=== PATIENT | male | born 1980 | race Caucasian/White ===

== ENCOUNTER 2025-05-23 18:04 | Inpatient (IN) | payer OTHER ==
[2025-05-23] MEDS ORDERED: Sodium Chloride 0.9% 10 ML Syringe FLUSH PRN (18:54)
[2025-05-23 19:09] LABS: BASOPHILS ABSOLUTE AUTO 0.1 K/mm3 (0.0-0.2); BASOPHILS PERCENT AUTO 0.3 % (0.0-1.0); EOSINOPHILS ABSOLUTE AUTO 0.0 K/mm3 (0.0-0.4); EOSINOPHILS PERCENT AUTO 0.1 % (0.0-6.0); IMMATURE GRAN ABSOLUTE AUTO 0.07 K/mm3 (0.00-0.05); IMMATURE GRAN PERCENT AUTO 0.5 % (0.0-0.4); LYMPHOCYTES ABSOLUTE AUTO 0.5 K/mm3 (1.0-4.8); LYMPHOCYTES PERCENT AUTO 3.4 % (24.0-44.0); MEAN PLATELET VOLUME 10.4 fl (9.4-12.4); MONOCYTES ABSOLUTE AUTO 0.8 K/mm3 (0.0-0.8); MONOCYTES PERCENT AUTO 5.0 % (0.0-8.0); NEUTROPHILS ABSOLUTE AUTO 13.9 K/mm3 (1.8-7.7); NEUTROPHILS PERCENT AUTO 90.7 % (41.0-71.0); NRBC ABSOLUTE 0.00 (0.00-0.02); NRBC PERCENT 0.0 % (0.0-0.2); PLATELET COUNT,PLT 209 K/mm3 (150-400); RED BLOOD CELL COUNT 7.02 M/mm3 (4.52-5.90); WHITE BLOOD CELL COUNT,WBC 15.35 K/mm3 (3.9-11.3)
[2025-05-23 19:21] LABS: INR 1.22
[2025-05-23 19:23] LABS: LACTIC ACID 1.3 mmol/L (0.4-2.0)
[2025-05-23 19:31] LABS: A/G RATIO 1.2 (1-2); ALANINE AMINOTRANSFERASE,ALT 495.0 U/L (16-63); ASPARTATE AMNIOTRANSFERASE,AST 188.0 U/L (15-37); BILIRUBIN TOTAL 14.0 mg/dL (0.2-1.0); BLOOD UREA NITROGEN,BUN 20.0 mg/dL (7-18); CARBON DIOXIDE,CO2 32.0 mEq/L (21-32); CHLORIDE,CL 102.0 mEq/L (98-107); CREATINE KINASE,CK 397.0 U/L (39-308); EST CRCL DRUG DOSING (CG) 56.41 mL/min; ESTIMATED GFR 54.0 mL/min (>60); GLUCOSE RANDOM 123.0 mg/dL (70-99); SODIUM,NA 142.0 mEq/L (136-145); TROPONIN I HIGH SENSITIVITY 36.0 pg/mL (<=76); TSH 2.762 uIU/mL (0.358-3.74)
[2025-05-23 19:32] LABS: ETHANOL BLOOD MEDICAL 0.0 gm% (0.00); POTASSIUM,K 4.0 mEq/L (3.5-5.1)
[2025-05-23 19:33] LABS: CREATININE 1.6 mg/dL (0.7-1.3); PROTEIN TOTAL,TP 7.2 g/dl (6.4-8.2)
[2025-05-23 19:38] LABS: BASE EXCESS ARTERIAL 1.3 (-2-2.0); BICARBONATE,ARTERIAL 23.8 meq/L (22.0-26.0); O2 SATURATION ARTERIAL 96.6 % (96.0-97.0); PCO2 ARTERIAL 32.0 mmHg (35.0-45.0); PO2 ARTERIAL 81.0 mmHg (80.0-100.0)
[2025-05-23] MEDS: Ondansetron 4 MG/2 ML SDV IVPUSH ONE (19:42)
[2025-05-23] MEDS ORDERED: Acetylcysteine 20% 200 MG/ML 30 ML SDV IV ONE ×2 (21:03→23:45)
[2025-05-23 21:07] LABS: APPEARANCE,URINE CLEAR (Clear); GLUCOSE,URINE TRACE (Negative); OCCULT BLOOD,URINE NEGATIVE (Negative)
[2025-05-23 21:15] LABS: EPITHELIAL CELLS,URINE 0-5 /hpf (0-5)
[2025-05-23 21:17] LABS: BUPRENORPHINE SCREEN,URINE NEGATIVE (CUTOFF=10); METHADONE SCREEN, URINE NEGATIVE (CUT0FF=200); METHAMPHETAMINES SCREEN, URINE NEGATIVE (CUTOFF=500); OXYCODONE SCREEN,URINE NEGATIVE (CUT0FF=100); THC SCREEN,URINE 20 NG/ML NEGATIVE (CUTOFF=50)
[2025-05-23 21:18] LABS: AMPHETAMINES SCREEN, URINE NEGATIVE (CUTOFF=500)
[2025-05-23 21:31] LABS: HEPATITIS C AB NON-REACTIVE (Non-React)
[2025-05-24] MEDS ORDERED: Ondansetron 4 MG/2 ML SDV IVPUSH PRN (00:28)
[2025-05-24] MEDS ORDERED: Acetylcysteine 20% 200 MG/ML 30 ML SDV IV ONE (01:00)
[2025-05-24 04:39] LABS: BASOPHILS ABSOLUTE AUTO 0.0 K/mm3 (0.0-0.2); BASOPHILS PERCENT AUTO 0.2 % (0.0-1.0); EOSINOPHILS ABSOLUTE AUTO 0.1 K/mm3 (0.0-0.4); EOSINOPHILS PERCENT AUTO 0.8 % (0.0-6.0); IMMATURE GRAN ABSOLUTE AUTO 0.06 K/mm3 (0.00-0.05); IMMATURE GRAN PERCENT AUTO 0.7 % (0.0-0.4); LYMPHOCYTES ABSOLUTE AUTO 0.5 K/mm3 (1.0-4.8); LYMPHOCYTES PERCENT AUTO 6.0 % (24.0-44.0); MEAN PLATELET VOLUME 11.2 fl (9.4-12.4); MONOCYTES ABSOLUTE AUTO 0.6 K/mm3 (0.0-0.8); MONOCYTES PERCENT AUTO 6.1 % (0.0-8.0); NEUTROPHILS ABSOLUTE AUTO 7.8 K/mm3 (1.8-7.7); NEUTROPHILS PERCENT AUTO 86.2 % (41.0-71.0); NRBC ABSOLUTE 0.00 (0.00-0.02); NRBC PERCENT 0.0 % (0.0-0.2); PLATELET COUNT,PLT 164 K/mm3 (150-400); RED BLOOD CELL COUNT 6.08 M/mm3 (4.52-5.90); WHITE BLOOD CELL COUNT,WBC 9.07 K/mm3 (3.9-11.3)
[2025-05-24 05:19] LABS: A/G RATIO 0.9 (1-2); ALANINE AMINOTRANSFERASE,ALT 367.0 U/L (16-63); ASPARTATE AMNIOTRANSFERASE,AST 110.0 U/L (15-37); BILIRUBIN TOTAL 5.0 mg/dL (0.2-1.0); BLOOD UREA NITROGEN,BUN 17.0 mg/dL (7-18); CARBON DIOXIDE,CO2 25.0 mEq/L (21-32); CHLORIDE,CL 105.0 mEq/L (98-107); EST CRCL DRUG DOSING (CG) 64.46 mL/min; ESTIMATED GFR 63.0 mL/min (>60); GLUCOSE RANDOM 149.0 mg/dL (70-99); SODIUM,NA 139.0 mEq/L (136-145)
[2025-05-24 05:24] LABS: CREATININE 1.4 mg/dL (0.7-1.3); POTASSIUM,K 3.8 mEq/L (3.5-5.1); PROTEIN TOTAL,TP 5.4 g/dl (6.4-8.2)
[2025-05-24 05:52] LABS: BILIRUBIN DIRECT 3.7 mg/dl (0.0-0.2)
[2025-05-24 18:30] LABS: A/G RATIO 0.8 (1-2); ALANINE AMINOTRANSFERASE,ALT 382.0 U/L (16-63); ASPARTATE AMNIOTRANSFERASE,AST 97.0 U/L (15-37); BILIRUBIN TOTAL 1.9 mg/dL (0.2-1.0); BLOOD UREA NITROGEN,BUN 14.0 mg/dL (7-18); CARBON DIOXIDE,CO2 27.0 mEq/L (21-32); CHLORIDE,CL 108.0 mEq/L (98-107); CREATININE 1.5 mg/dL (0.7-1.3); EST CRCL DRUG DOSING (CG) 60.17 mL/min; ESTIMATED GFR 58.0 mL/min (>60); GLUCOSE RANDOM 122.0 mg/dL (70-99); POTASSIUM,K 4.0 mEq/L (3.5-5.1); PROTEIN TOTAL,TP 5.7 g/dl (6.4-8.2); SODIUM,NA 143.0 mEq/L (136-145)
[2025-05-24 18:35] LABS: INR 1.16
[2025-05-25 04:30] LABS: BASOPHILS ABSOLUTE AUTO 0.0 K/mm3 (0.0-0.2); BASOPHILS PERCENT AUTO 0.6 % (0.0-1.0); EOSINOPHILS ABSOLUTE AUTO 0.1 K/mm3 (0.0-0.4); EOSINOPHILS PERCENT AUTO 1.7 % (0.0-6.0); IMMATURE GRAN ABSOLUTE AUTO 0.06 K/mm3 (0.00-0.05); IMMATURE GRAN PERCENT AUTO 0.8 % (0.0-0.4); LYMPHOCYTES ABSOLUTE AUTO 0.7 K/mm3 (1.0-4.8); LYMPHOCYTES PERCENT AUTO 9.5 % (24.0-44.0); MEAN PLATELET VOLUME 11.1 fl (9.4-12.4); MONOCYTES ABSOLUTE AUTO 0.8 K/mm3 (0.0-0.8); MONOCYTES PERCENT AUTO 10.6 % (0.0-8.0); NEUTROPHILS ABSOLUTE AUTO 5.5 K/mm3 (1.8-7.7); NEUTROPHILS PERCENT AUTO 76.8 % (41.0-71.0); NRBC ABSOLUTE 0.00 (0.00-0.02); NRBC PERCENT 0.0 % (0.0-0.2); PLATELET COUNT,PLT 154 K/mm3 (150-400); RED BLOOD CELL COUNT 5.94 M/mm3 (4.52-5.90); WHITE BLOOD CELL COUNT,WBC 7.18 K/mm3 (3.9-11.3)
[2025-05-25 04:48] LABS: INR 1.07
[2025-05-25 05:12] LABS: A/G RATIO 0.9 (1-2); ALANINE AMINOTRANSFERASE,ALT 336.0 U/L (16-63); ASPARTATE AMNIOTRANSFERASE,AST 75.0 U/L (15-37); BILIRUBIN TOTAL 1.6 mg/dL (0.2-1.0); BLOOD UREA NITROGEN,BUN 12.0 mg/dL (7-18); CARBON DIOXIDE,CO2 24.0 mEq/L (21-32); CHLORIDE,CL 108.0 mEq/L (98-107); CREATINE KINASE,CK 123.0 U/L (39-308); CREATININE 1.2 mg/dL (0.7-1.3); EST CRCL DRUG DOSING (CG) 75.21 mL/min; ESTIMATED GFR 76.0 mL/min (>60); GLUCOSE RANDOM 87.0 mg/dL (70-99); POTASSIUM,K 4.1 mEq/L (3.5-5.1); PROTEIN TOTAL,TP 5.5 g/dl (6.4-8.2); SODIUM,NA 140.0 mEq/L (136-145)
[2025-05-26 20:47] LABS: HAV AB IGM Negative (Negative); HBC IGM Negative (Negative); HEP B SURG AG Negative (Negative); HEP C AB BY CIA Negative (Negative); HEP C AB BY CIA INDEX 0.03 IV
== END 2025-05-25 10:48 | disposition home or self-care (01) | DRG 442 ==
LOC: JD.ED 18:04 → JD.ICU 05-24 00:04 → JD.MS 05-24 17:25
PROVIDERS: ADMIT Family Medicine; ATTEND Family Medicine
PROC: 4A033R1 Measurement of Arterial Saturation, Peripheral, Percutaneous Approach (ICD-10-PCS; principal; 2025-05-23)
DX: R11.2 Nausea with vomiting, unspecified (principal); K72.00 Acute and subacute hepatic failure without coma; R79.89 Other specified abnormal findings of blood chemistry; N17.9 Acute kidney failure, unspecified; E86.0 Dehydration; R74.8 Abnormal levels of other serum enzymes; R73.9 Hyperglycemia, unspecified; K80.20 Calculus of gallbladder without cholecystitis without obstruction; K57.90 Diverticulosis of intestine, part unspecified, without perforation or abscess without bleeding; F17.200 Nicotine dependence, unspecified, uncomplicated; R74.01 Elevation of levels of liver transaminase levels; E80.6 Other disorders of bilirubin metabolism
CPT/HCPCS: 36415; 36600; 74176; 76705; 80053; 80143; 80179; 80306; 80307; 81001; 82140; 82248; 82550; 82803; 83605; 83690; 83735; 83880; 84443; 84484; 85025; 85610; 85730; 86803; 87040 ×2; 93005; 96361; 96365; 96366; 99285; J0132 ×2; J7030 ×2; J7060 ×2; 80074; 82175; 82300; 83036; 83655; 83825; J1650; J2405; J7070